=== PATIENT | female | born 1950 | race Caucasian/White ===

== ENCOUNTER 2024-07-08 16:08 | Observation (INO) ==
[2024-07-08] MEDS ORDERED: IOPAMIDOL 100 ML BOTTLE IV ONE (16:09)
[2024-07-08] MEDS: 0.9 % SODIUM CHLORIDE 250 ML IV SCH (16:48)
[2024-07-08 17:22] LABS: Prothrombin Time 23.3 sec (11.9-14.5)
[2024-07-08 18:42] LABS: Ferritin 11.3 ng/mL (30.0-400.0)
[2024-07-08] MEDS ORDERED: ACETAMINOPHEN 325 MG TABLET PO PRN (19:51)
[2024-07-08] MEDS ORDERED: ONDANSETRON 4 MG/2 ML VIAL IV PRN (19:51)
[2024-07-08] MEDS: POLYETHYLENE GLYCOL 3350 17 GM PACKET PO SCH (22:20)
[2024-07-08] MEDS: SENNOSIDES 1 TABLET PO SCH (22:21)
[2024-07-08] MEDS: traMADol 50 MG TABLET PO SCH (22:21)
[2024-07-08] MEDS: CYCLOBENZAPRINE 10 MG TABLET PO PRN (22:22)
[2024-07-08] MEDS: 0.9 % SODIUM CHLORIDE 10 ML SYRINGE IV SCH (22:22)
[2024-07-08 23:55] LABS: Hematocrit 26.9 % (34.1-44.9); Hemoglobin 8.2 g/dL (11.2-15.7)
[2024-07-09 00:20] LABS: Prothrombin Time 23.1 sec (11.9-14.5)
[2024-07-09 06:03] LABS: Basophils # (Auto) 0.03 K/mcL (0.00-0.30); Basophils % (Auto) 0.5 % (0.0-2.0); Eosinophils % (Auto) 1.7 % (0.0-7.0); Hematocrit 25.7 % (34.1-44.9); Hemoglobin 7.8 g/dL (11.2-15.7); Lymphocytes # (Auto) 1.64 K/mcL (1.50-4.80); Lymphocytes % (Auto) 28.7 % (15.5-49.0); Mean Cell Volume 81.8 fL (80.0-100.0); Mean Corpuscular HGB Conc 30.4 g/dL (31.0-36.0); Mean Platelet Volume 8.5 fL (8.8-12.5); Monocytes # (Auto) 0.55 K/mcL (0.10-0.90); Monocytes % (Auto) 9.6 % (1.0-12.0); Neutrophils % (Auto) 59.3 % (38.0-78.0); Platelet Count 238 K/mcL (140-440); RBC 3.14 M/mcL (3.59-5.38); Red Cell Distribution Width 15.5 % (11.5-14.5); WBC 5.7 K/mcL (4.5-11.0)
[2024-07-09 06:41] LABS: Blood Urea Nitrogen 15 mg/dL (8-23); Calcium 9.1 mg/dL (8.6-10.4); Carbon Dioxide 26 mmol/L (22-30); Chloride 103 mmol/L (96-108); Glomerular Filtration Rate 56; Glucose 93 mg/dL (70-105); Potassium 3.8 mmol/L (3.3-5.1); Sodium 141 mmol/L (133-145)
[2024-07-09] MEDS: ATORVASTATIN 40 MG TABLET PO SCH (08:06)
[2024-07-09] MEDS: LOSARTAN 50 MG TABLET PO SCH (08:06)
[2024-07-09] MEDS: BISOPROLOL 5 MG TABLET PO SCH (08:06)
[2024-07-09] MEDS ORDERED: NON FORMULARY MEDICATION 1 DOSE MISCELL (Krill Oil 500 mg capsule) PO SCH (09:00)
[2024-07-09] MEDS: 0.9 % SODIUM CHLORIDE 250 ML IV SCH (09:07)
[2024-07-09 13:14] LABS: Hematocrit 30.3 % (34.1-44.9); Hemoglobin 9.3 g/dL (11.2-15.7)
[2024-07-09] MEDS: WARFARIN 5 MG TABLET PO SCH (13:27)
[2024-07-09] MEDS ORDERED: LATANOPROST OPHTH DROPS 2.5ML BOTTLE OU SCH (21:00)
== END 2024-07-09 14:00 | disposition home or self-care (01) ==
LOC: ED 16:08 → MEDSUR 16:08
PROVIDERS: ADMIT Student in an Organized Health Care Education/Training Program; ATTEND Student in an Organized Health Care Education/Training Program